=== PATIENT | male | born 1955 | race Caucasian/White ===

== ENCOUNTER 2017-04-28 11:41 | Emergency (ER) | payer MEDICAID ==
[2017-04-28 12:11] VITALS: BP 119/76; RESP 16
[2017-04-28] MEDS ORDERED: FOLIC ACID 1 MG TAB PO ONE (13:49)
[2017-04-28] MEDS ORDERED: THIAMINE HCL 100 MG TAB PO ONE (13:49)
--- NOTE | 2017-04-28 14:31 | EDPHY ---
General Narrative: CHIEF COMPLAINT: Intoxication, falls, wanting detox HISTORY OF PRESENT ILLNESS: Patient presents with son at bedside. The son reports that the patient has been drinking more so than normal for him. He does drink heavily every day. He reports the patient was found outside of his apartment, having been locked out by the city secretary of the apartment until he goes to detox. He says the patient has been falling frequently due to his intoxication. He has struck his head twice in the past 2 days. He is complaining of right-sided facial pain and jaw pain. No difficulty opening or closing his mouth. No neck pain. No chest or back pain. No abdominal pain. No pain in the arms or legs. No vomiting. No visual disturbance. No other associated complaints or modifying factors. REVIEW OF SYSTEMS: Ten systems reviewed and are negative unless otherwise noted in the HPI PCP: No primary care physician SPECIALISTS: None PAST MEDICAL HISTORY: Alcoholism, diabetes mellitus, schizophrenia PAST SURGICAL HISTORY: No surgical history SOCIAL HISTORY: Daily smoker. Heavy daily alcohol ingestion. FAMILY HISTORY: Noncontributory EXAMINATION General Appearance: Alert, no distress. Strong odor of alcohol Head: normocephalic, atraumatic. No Thomas sign. No raccoon eyes. Eyes: Pupils equal and round, no conjunctival pallor or injection ENT, Mouth: Mucous membranes moist. Airway patent. Poor dentition Neck: Normal inspection, supple, non-tender Respiratory: Lungs are clear to auscultation. No wheezing, rhonchi or crackles Cardiovascular: Regular rate and rhythm. No murmur. Gastrointestinal: Abdomen is soft and nontender. No distention. No tympany. No rigidity. No guarding Neurological: GCS 15 A&O, nonfocal, strength is symmetric in all 4 limbs. Normal [id number]. No pronator drift. Skin: Warm and dry, no rash. No petechiae or purpura Extremities: Nontender, no pedal edema Psychiatric: Mood and affect normal DIFFERENTIAL DIAGNOSES: Including but not limited to acute alcohol intoxication, chronic alcohol abuse, diabetes, intracranial hemorrhage, concussion, dehydration MDM: 1:50 p.m. Acute alcohol intoxication and alcoholic patient with multiple falls. Given his intoxication, I have ordered CT scans of the head cervical spine. Neuro exam is normal. He does have a breathalyzer result of greater than 340. He does not appear to be in any acute distress his vital signs are stable. I have ordered p.o. thiamine and folic acid as he is a heavy drinker. Normal mentation at this time without encephalopathy 2:29 p.m. Notified by technical support agentmaurisio Velasco that the FSBS is 202. 2:45 p.m. [address] by radiologist Dr. Duran. CT scans of the head and cervical spine do not reveal any acute findings. 3:00 p.m. Patient re-evaluated. He is ambulating in the [place]helps without assistance. He is communicating appropriately with no slurred speech. He has no tremor. I do not appreciate any altered mentation or encephalopathy. He does appear acutely intoxicated, and he has been accepted to the [facility] with a Librium taper per protocol. I do feel he is stable to do so. I did discuss his elevated blood glucose with him. He says he has not been taking his metformin and he will do so. [facility] with no stops. We discussed ED precautions and he is comfortable this plan. I do feel that he is stable for transfer [facility]. SUPERVISION: Patient was independently examined, but I discussed the case with my secondary supervising physician - Diagnostics Imaging Results: Imaging Impressions Cervical Spine CT 04/28/17 13:49 Impression: 1. No acute posttraumatic abnormality identified. If there is persistent pain or neurologic deficit, consider MRI and/or flexion and extension views if clinically indicated. 2. Congenital spinal canal narrowing exacerbated by degenerative change from C4 through C7 with probable moderate spinal canal narrowing. Findings discussed with Spencer Matthew, 04/28/2017 at 14:38. Head CT 04/28/17 13:49 Impression: 1. No acute intracranial findings. 2. Diffuse cerebral atrophy with periventricular and subcortical low attenuation consistent with chronic microvascular ischemic gliosis. Findings discussed with Spencer Matthew 04/28/2017 at 14:38. - History Smoking Status: Heavy smoker - Objective Vital Signs: Initial Vital Signs Temperature (C) 98.2 F 04/28/17 12:09 Heart Rate 79 04/28/17 12:09 Respiratory Rate 16 04/28/17 12:09 Blood Pressure 119/76 04/28/17 12:09 O2 Sat (%) 95 04/28/17 12:09 O2 Delivery Mode Room Air Allergies/Adverse Reactions: iodine [Iodine] Allergy (Verified 04/28/17 12:09) Hives morphine Allergy (Verified 04/28/17 12:09) Vomiting IV Contrast Allergy (Uncoded 04/28/17 12:09) Hives Home Medications: Medication Instructions Recorded Effexor 12/04/14 Metformin Sr 12/04/14 Risperdal 07/23/16 Laboratory Results: 04/28/17 14:17 POC Glucose 202 mg/dL H mg/dL (70-100) Medications Given: Discontinued Medications Chlordiazepoxide (Librium 25 Mg Prepack#6) 1 btl TAKEHOME EDNOW ONE Stop: 04/28/17 15:04 Last Admin: 04/28/17 15:09 Dose: 1 btl Folic Acid (Folic Acid) 1 mg PO EDNOW ONE Stop: 04/28/17 13:50 Last Admin: 04/28/17 14:00 Dose: 1 mg Thiamine HCl (Vitamin B-1) 100 mg PO EDNOW ONE Stop: 04/28/17 13:50 Last Admin: 04/28/17 14:00 Dose: 100 mg Point of Care Test Results: 04/28/17 14:17 POC Glucose 202 H Departure - Departure Disposition: Home, Routine, Self-Care Clinical Impression: Acute alcohol intoxication Qualifiers: Complication of substance-induced condition: with unspecified complication Qualified Code(s): F10.929 - Alcohol use, unspecified with intoxication, unspecified Fall Qualifiers: Encounter type: initial encounter Qualified Code(s): W19.XXXA - Unspecified fall, initial encounter Closed head injury Qualifiers: Encounter type: initial encounter Qualified Code(s): S09.90XA - Unspecified injury of head, initial encounter Condition: Good Instructions: Chlordiazepoxide (By mouth), Alcohol Intoxication (ED), Abuse of Alcohol (ED), Fall Prevention (ED) Additional Instructions: 1. [facility] 2. Follow up with primary care physician to discuss your elevated blood glucose for tighter management 3. ED precautions as discussed Referrals: [facility],. [Clinic] - As per Instructions [facility] 24 Hours [Outside] - As per Instructions
[2017-04-28] MEDS ORDERED: CHLORDIAZEPOXIDE 25MG PREPK#6 BTL TAKEHOME ONE (15:03)
[2017-04-28 15:40] VITALS: PULSE 82; TEMP 97.9; O2SAT 94
== END 2017-04-28 15:25 | disposition home or self-care (01) ==
DX: S09.90XA Unspecified injury of head, initial encounter (principal); E11.9 Type 2 diabetes mellitus without complications; Z79.84 Long term (current) use of oral hypoglycemic drugs; W18.09XA Striking against other object with subsequent fall, initial encounter; F10.929 Alcohol use, unspecified with intoxication, unspecified; F17.200 Nicotine dependence, unspecified, uncomplicated